=== PATIENT | female | born 1935 | race Caucasian/White ===

== ENCOUNTER → 2016-06-12 | Outpatient (CLI) | payer MEDICARE, BC ==
[~2016-06-12] MED LIST: ATOR20TA9 PO; BENZ100C4 PO; GLUC500T8 PO; GUAI5SYR PO; HYDR25TA6 PO; LEVO500T33 PO; MULT-6 PO; OMEP-110 PO; POTA10CA PO; VITA1CAP PO
== END | disposition home or self-care (01) ==
LOC: CFH 10:06
PROVIDERS: ATTEND Family Medicine
DX: M51.36 Other intervertebral disc degeneration, lumbar region (principal); M41.86 Other forms of scoliosis, lumbar region; M48.06 Spinal stenosis, lumbar region; M51.04 Intervertebral disc disorders with myelopathy, thoracic region; M43.8X4 Other specified deforming dorsopathies, thoracic region; M25.78 Osteophyte, vertebrae
CPT/HCPCS: 72148

== ENCOUNTER → 2016-07-10 | Outpatient (CLI) | payer MEDICARE, BC ==
[~2016-07-10] MED LIST changes: +CALC-55 PO; +ENAL10TA PO; +FLUOROURACIL 5%; +FLUT12AE3 NS; +LUTE1CAP5 PO; +VITA400T6 PO; +chondroitin PO
[2016-07-10 11:57] LABS: ASPARTATE AMINO TRANSFERASE 18 U/L (15-37); BLOOD UREA NITROGEN 11 mg/dL (7-18)
[2016-07-10 12:11] LABS: HIV 1&2 ANTIBODY SCREEN Nonreactive (Nonreactive); HIV-1 p24 ANTIGEN Nonreactive (Nonreactive)
[2016-07-10 12:59] LABS: HEPATITIS C VIRUS ANTIBODY Nonreactive (Nonreactive)
== END | disposition home or self-care (01) ==
LOC: STAR 10:14
PROVIDERS: ATTEND Orthopaedic Surgery Orthopaedic Surgery of the Spine
DX: Z01.818 Encounter for other preprocedural examination (principal); Z85.89 Personal history of malignant neoplasm of other organs and systems; S22.069A Unspecified fracture of T7-T8 vertebra, initial encounter for closed fracture; X58.XXXA Exposure to other specified factors, initial encounter; Y93.89 Activity, other specified; Y92.89 Other specified places as the place of occurrence of the external cause; Y99.8 Other external cause status
CPT/HCPCS: 36415; 71020; 80053; 80074; 81001; 85025; 85610; 85651; 85730; 86703; 87077; 87086; 87899; 93005; G0435

== ENCOUNTER 2016-07-17 07:54 | Day surgery (SDC) | payer MEDICARE, BC ==
[2016-07-10 10:56] VITALS: BP 181/86
[~2016-07-17] VITALS: Ht 170.2 cm; Wt 65.0 kg
[2016-07-17] MEDS ORDERED: LACTATED RINGERS 1,000 ML IV SCH (08:37)
[2016-07-17 08:41] VITALS: BP 181/86
[2016-07-17] MEDS ORDERED: SULF1TAB24 PO (08:41)
[2016-07-17] MEDS ORDERED: LIDOCAINE 1%, 2ML ONE (08:43)
[2016-07-17] MEDS ORDERED: MIDAZOLAM 1 MG/ML, 2ML ONE (09:42)
[2016-07-17] MEDS ORDERED: FENTANYL PF 250 MCG/5ML ONE (09:42)
[2016-07-17] MEDS ORDERED: LIDOCAINE/PF 1%, 30ML ONE (10:04)
[2016-07-17] MEDS ORDERED: BUPIVACAINE/PF-EPI 0.5% 1:200K ONE (10:04)
[2016-07-17] MEDS ORDERED: LIDOCAINE 0.5%-EPI 1:200K, 50ML ONE (10:26)
[2016-07-17] MEDS ORDERED: SUCCINYLCHOLINE 20 MG/ML, 10ML ONE (10:40)
[2016-07-17] MEDS ORDERED: ROCURONIUM 10 MG/ML ONE (10:40)
[2016-07-17] MEDS ORDERED: CEFAZOLIN 1,000 MG ONE (10:40)
[2016-07-17] MEDS ORDERED: DEXAMETHASONE 4 MG/ML, 1ML ONE (10:40)
[2016-07-17] MEDS ORDERED: ONDANSETRON 2MG/ML, 2ML ONE (10:40)
[2016-07-17] MEDS ORDERED: PROPOFOL 10 MG/ML, 20ML ONE (10:40)
[2016-07-17] MEDS ORDERED: OMNIPAQUE 180 MG/ML, 20ML VIAL ONE (12:19)
[2016-07-17] MEDS ORDERED: OXYcodone 5 MG/5 ML ORAL.SOL UDC ONE (12:28)
[2016-07-17] MEDS ORDERED: LABETALOL 5MG/ML, 20ML IV PRN (12:30)
[2016-07-17] MEDS ORDERED: ACETAMINOPHEN 325 MG TABLET PO PRN (12:30)
[2016-07-17] MEDS ORDERED: hydrALAzine 20 MG/ML, 1ML IV PRN (12:30)
[2016-07-17] MEDS ORDERED: HYDROmorphone 1 MG/ML, 1ML IV PRN (12:30)
[2016-07-17] MEDS ORDERED: FENTANYL PF 100 MCG/2ML IV PRN (12:30)
[2016-07-17] MEDS ORDERED: ONDANSETRON 2MG/ML, 2ML IVPush PRN (12:30)
[2016-07-17] MEDS ORDERED: OXYcodone 5 MG/5 ML ORAL.SOL UDC PO PRN (12:30)
[2016-07-17] MEDS ORDERED: METOCLOPRAMIDE 5 MG/ML, 2ML IV PRN (12:30)
== END 2016-07-17 14:25 | disposition home or self-care (01) ==
LOC: OUT 07:54
PROVIDERS: ATTEND Orthopaedic Surgery Orthopaedic Surgery of the Spine
DX: M80.88XA Other osteoporosis with current pathological fracture, vertebra(e), initial encounter for fracture (principal); M54.6 Pain in thoracic spine; C90.00 Multiple myeloma not having achieved remission; E11.9 Type 2 diabetes mellitus without complications; E78.5 Hyperlipidemia, unspecified; K21.9 Gastro-esophageal reflux disease without esophagitis; Z90.49 Acquired absence of other specified parts of digestive tract; Z96.653 Presence of artificial knee joint, bilateral; G47.30 Sleep apnea, unspecified; Z98.1 Arthrodesis status; Z79.899 Other long term (current) drug therapy; Z88.8 Allergy status to other drugs, medicaments and biological substances; Z90.710 Acquired absence of both cervix and uterus
CPT/HCPCS: 20982; 22513; 72072; 81001; 81003; 87086; 88307; 88311; C1713; C1886; J0330; J0690; J1100; J2250; J2405; J2704; J3010; J7120; Q9965; J3490

== ENCOUNTER 2016-09-12 23:32 | Inpatient (IN) | payer MEDICARE, BC ==
[~2016-09-12] VITALS: Ht 167.6 cm; Wt 71.1 kg
[~2016-09-12 23:32] MED LIST changes: +SULF1TAB24 PO
[2016-09-12] MEDS ORDERED: HYDROmorphone 1 MG/ML, 1ML IM STA (23:42)
[2016-09-13] MEDS ORDERED: HYDROmorphone 1 MG/ML, 1ML ONE (00:34)
[2016-09-13] MEDS ORDERED: SODIUM CHLORIDE 0.9% 1,000 ML IV ONE (02:09)
[2016-09-13] MEDS ORDERED: MORPHINE SULFATE 4 MG/ML, 1ML IVPush PRN (02:30)
[2016-09-13] MEDS ORDERED: ONDANSETRON 2MG/ML, 2ML IVPush PRN (02:30)
[2016-09-13 02:31] LABS: BLOOD UREA NITROGEN 12 mg/dL (7-18)
[2016-09-13 03:30] VITALS: BP 133/77
[2016-09-13] MEDS ORDERED: hydrALAzine 20 MG/ML, 1ML IVPush PRN (04:30)
[2016-09-13] MEDS ORDERED: BISACODYL 10 MG SUPP PR PRN (04:30)
[2016-09-13] MEDS ORDERED: FLUTICASONE NASAL SPRAY 16GM NAS PRN (04:30)
[2016-09-13] MEDS ORDERED: DOCUSATE 100 MG CAPSULE PO PRN (04:30)
[2016-09-13] MEDS ORDERED: ACETAMINOPHEN 325 MG TABLET PO PRN (04:30)
[2016-09-13] MEDS ORDERED: TRAZODONE 50MG TABLET PO PRN (04:30)
[2016-09-13] MEDS: morphine SULFATE 10 MG/ML, 1ML IVPush PRN ×2 (05:42→08:49)
[2016-09-13] MEDS: HEPARIN 5,000 UNITS/ML, 1ML SQ SCH ×3 (05:45→21:38)
[2016-09-13 06:28] VITALS: BP 133/77
[2016-09-13 06:45] VITALS: BP 166/74
[2016-09-13] MEDS: FOLIC ACID 1 MG TABLET PO SCH (08:15)
[2016-09-13] MEDS: THIAMINE 100MG TABLET PO SCH (08:16)
[2016-09-13] MEDS: CALCIUM/VITAMIN D3 250-125 TABLET PO SCH ×3 (08:16→21:37)
[2016-09-13] MEDS: OMEPRAZOLE 20 MG CAPSULE.DR PO SCH (08:16)
[2016-09-13] MEDS: MULTIVITAMIN 1 TABLET PO SCH (08:16)
[2016-09-13] MEDS ORDERED: LUTEIN PO SCH (09:00)
[2016-09-13] MEDS ORDERED: ZEAXANTHIN PO SCH (09:00)
[2016-09-13] MEDS ORDERED: MAGNESIUM SULFATE PMX 4GM/100M 100 ML IV ONE (10:00)
[2016-09-13] MEDS: NS + 20MEQ KCL 1,000 ML IV SCH ×2 (10:52→23:10)
[2016-09-13 12:40] VITALS: BP 178/78
[2016-09-13] MEDS: HYDROcodone/APAP 10/325 MG TABLET PO PRN ×3 (12:58→23:08)
[2016-09-13] MEDS ORDERED: AMLO5TAB4 PO (13:51)
[2016-09-13] MEDS ORDERED: HYDR25TA6 PO (13:51)
[2016-09-13] MEDS ORDERED: AMLODIPINE 5 MG TABLET PO ONE (14:00)
[2016-09-13] MEDS ORDERED: HYDROCHLOROTHIAZIDE 25 MG TABLET PO ONE (14:00)
[2016-09-13 18:59] VITALS: BP 152/76
[2016-09-13] MEDS: ATORVASTATIN 20 MG TABLET PO SCH (21:37)
[2016-09-14 01:17] VITALS: BP 170/72
[2016-09-14] MEDS: HYDROcodone/APAP 10/325 MG TABLET PO PRN ×5 (04:39→21:55)
[2016-09-14 05:24] LABS: BLOOD UREA NITROGEN 5 mg/dL (7-18)
[2016-09-14 05:27] LABS: ASPARTATE AMINO TRANSFERASE 17 U/L (15-37)
[2016-09-14] MEDS: HEPARIN 5,000 UNITS/ML, 1ML SQ SCH ×3 (05:52→21:57)
[2016-09-14 06:31] VITALS: BP 141/74
[2016-09-14] MEDS ORDERED: POTASSIUM CHLORIDE 20 MEQ TAB.ER.PRT PO ONE (07:30)
[2016-09-14] MEDS: OMEPRAZOLE 20 MG CAPSULE.DR PO SCH (08:35)
[2016-09-14] MEDS: ONDANSETRON 2MG/ML, 2ML IVPush PRN (08:43)
[2016-09-14] MEDS: HYDROCHLOROTHIAZIDE 25 MG TABLET PO SCH (09:00)
[2016-09-14] MEDS: FOLIC ACID 1 MG TABLET PO SCH (10:27)
[2016-09-14] MEDS: CALCIUM/VITAMIN D3 250-125 TABLET PO SCH ×3 (10:28→21:55)
[2016-09-14] MEDS: MULTIVITAMIN 1 TABLET PO SCH (10:28)
[2016-09-14] MEDS: THIAMINE 100MG TABLET PO SCH (10:28)
[2016-09-14] MEDS: AMLODIPINE 5 MG TABLET PO SCH (10:28)
[2016-09-14] MEDS ORDERED: HYDR-3307 PO (12:00)
[2016-09-14] MEDS ORDERED: ONDA4TAB10 PO (12:00)
[2016-09-14 12:52] VITALS: BP 137/79
[2016-09-14] MEDS: POTASSIUM CHLORIDE 20 MEQ TAB.ER.PRT PO SCH (16:40)
[2016-09-14 18:25] LABS: PATH.CAST-FLAG NOT PRESENT; SPERM-FLAG NOT PRESENT; SRC-FLAG NOT PRESENT; XTAL-FLAG NOT PRESENT; YLC-FLAG NOT PRESENT
[2016-09-14 19:13] VITALS: BP 158/67
[2016-09-14] MEDS: POLYETHYLENE GLYCOL 17 GM PACKET PO PRN (21:55)
[2016-09-14] MEDS: ATORVASTATIN 20 MG TABLET PO SCH (21:55)
[2016-09-15 00:21] VITALS: BP 176/77
[2016-09-15 02:58] VITALS: BP 155/83
[2016-09-15] MEDS: HYDROcodone/APAP 10/325 MG TABLET PO PRN ×3 (04:13→16:44)
[2016-09-15 05:03] LABS: BLOOD UREA NITROGEN 5 mg/dL (7-18)
[2016-09-15] MEDS: HEPARIN 5,000 UNITS/ML, 1ML SQ SCH ×3 (05:25→22:15)
[2016-09-15 06:53] VITALS: BP 172/83
[2016-09-15] MEDS: THIAMINE 100MG TABLET PO SCH (08:10)
[2016-09-15] MEDS: POTASSIUM CHLORIDE 20 MEQ TAB.ER.PRT PO SCH (08:10)
[2016-09-15] MEDS: FOLIC ACID 1 MG TABLET PO SCH (08:10)
[2016-09-15] MEDS: MULTIVITAMIN 1 TABLET PO SCH (08:10)
[2016-09-15] MEDS: AMLODIPINE 5 MG TABLET PO SCH (08:10)
[2016-09-15] MEDS: OMEPRAZOLE 20 MG CAPSULE.DR PO SCH (08:11)
[2016-09-15] MEDS: HYDROCHLOROTHIAZIDE 25 MG TABLET PO SCH (08:11)
[2016-09-15] MEDS: CALCIUM/VITAMIN D3 250-125 TABLET PO SCH ×3 (08:11→22:15)
[2016-09-15] MEDS: ONDANSETRON 2MG/ML, 2ML IVPush PRN (08:19)
[2016-09-15] MEDS: AMPICILLIN 1 GM in SODIUM CHLORIDE 0.9% 50 ML IV SCH ×3 (12:43→23:20)
[2016-09-15 13:10] VITALS: BP 162/75
[2016-09-15 18:17] VITALS: BP 160/84
[2016-09-15] MEDS: ATORVASTATIN 20 MG TABLET PO SCH (22:15)
[2016-09-16 01:30] VITALS: BP 161/72
[2016-09-16] MEDS: HYDROcodone/APAP 10/325 MG TABLET PO PRN (01:57)
[2016-09-16] MEDS: HEPARIN 5,000 UNITS/ML, 1ML SQ SCH ×3 (05:34→22:59)
[2016-09-16] MEDS: AMPICILLIN 1 GM in SODIUM CHLORIDE 0.9% 50 ML IV SCH ×4 (05:34→22:59)
[2016-09-16 06:33] VITALS: BP 149/78
[2016-09-16] MEDS: THIAMINE 100MG TABLET PO SCH (08:04)
[2016-09-16] MEDS: FOLIC ACID 1 MG TABLET PO SCH (08:04)
[2016-09-16] MEDS: CALCIUM/VITAMIN D3 250-125 TABLET PO SCH ×3 (08:04→20:42)
[2016-09-16] MEDS: MULTIVITAMIN 1 TABLET PO SCH (08:04)
[2016-09-16] MEDS: ONDANSETRON 2MG/ML, 2ML IVPush PRN (08:08)
[2016-09-16] MEDS: POLYETHYLENE GLYCOL 17 GM PACKET PO PRN (08:09)
[2016-09-16] MEDS: AMLODIPINE 5 MG TABLET PO SCH (08:11)
[2016-09-16] MEDS: OMEPRAZOLE 20 MG CAPSULE.DR PO SCH (08:11)
[2016-09-16] MEDS: HYDROCHLOROTHIAZIDE 25 MG TABLET PO SCH (08:11)
[2016-09-16] MEDS ORDERED: BISACODYL 10 MG SUPP PR PRN (10:00)
[2016-09-16 10:35] LABS: BLOOD UREA NITROGEN 6 mg/dL (7-18)
[2016-09-16 10:40] LABS: ASPARTATE AMINO TRANSFERASE 20 U/L (15-37)
[2016-09-16] MEDS ORDERED: NS + 40MEQ KCL 1,000 ML IV SCH ×2 (11:00→21:30)
[2016-09-16 12:51] VITALS: BP 146/80
[2016-09-16] MEDS ORDERED: AMPI500C2 PO (16:09)
[2016-09-16] MEDS: POTASSIUM CHLORIDE 20 MEQ TAB.ER.PRT PO SCH (16:37)
[2016-09-16] MEDS: HYDROcodone/APAP 5/325 TABLET PO PRN ×2 (16:40→20:42)
[2016-09-16 19:02] VITALS: BP 161/69
[2016-09-16] MEDS: ATORVASTATIN 20 MG TABLET PO SCH (20:42)
[2016-09-16] MEDS ORDERED: hydrALAzine 20 MG/ML, 1ML IVPush PRN (21:00)
[2016-09-16] MEDS ORDERED: FLUTICASONE NASAL SPRAY 16GM NAS PRN (21:00)
[2016-09-16] MEDS ORDERED: TRAZODONE 50MG TABLET PO PRN (21:00)
[2016-09-16] MEDS ORDERED: ACETAMINOPHEN 325 MG TABLET PO PRN (21:00)
[2016-09-17 01:59] VITALS: BP 157/75
[2016-09-17] MEDS: AMPICILLIN 1 GM in SODIUM CHLORIDE 0.9% 50 ML IV SCH (05:15)
[2016-09-17 05:36] LABS: BLOOD UREA NITROGEN 6 mg/dL (7-18)
[2016-09-17 05:41] LABS: ASPARTATE AMINO TRANSFERASE 19 U/L (15-37)
[2016-09-17] MEDS: HEPARIN 5,000 UNITS/ML, 1ML SQ SCH ×3 (07:07→23:06)
[2016-09-17 07:46] VITALS: BP 164/94
[2016-09-17] MEDS ORDERED: MAGNESIUM CITRATE 300ML ORAL SOL PO PRN (09:00)
[2016-09-17] MEDS ORDERED: POTASSIUM CHLORIDE 20 MEQ TAB.ER.PRT PO ONE (09:00)
[2016-09-17] MEDS: FOLIC ACID 1 MG TABLET PO SCH (10:22)
[2016-09-17] MEDS: MULTIVITAMIN 1 TABLET PO SCH (10:22)
[2016-09-17] MEDS: HYDROCHLOROTHIAZIDE 25 MG TABLET PO SCH (10:22)
[2016-09-17] MEDS: AMLODIPINE 5 MG TABLET PO SCH (10:22)
[2016-09-17] MEDS: OMEPRAZOLE 20 MG CAPSULE.DR PO SCH (10:22)
[2016-09-17] MEDS: THIAMINE 100MG TABLET PO SCH (10:22)
[2016-09-17] MEDS: AMOXICILLIN 500 MG CAPSULE PO SCH ×3 (10:22→20:00)
[2016-09-17] MEDS: CALCIUM/VITAMIN D3 250-125 TABLET PO SCH ×3 (10:22→19:59)
[2016-09-17] MEDS: POTASSIUM CHLORIDE 20 MEQ TAB.ER.PRT PO SCH ×2 (10:22→16:29)
[2016-09-17 12:53] VITALS: BP 144/77
[2016-09-17 18:44] VITALS: BP 153/83
[2016-09-17] MEDS: ATORVASTATIN 20 MG TABLET PO SCH (19:59)
[2016-09-17] MEDS: HYDROcodone/APAP 5/325 TABLET PO PRN (19:59)
[2016-09-18 02:38] VITALS: BP 147/89
[2016-09-18] MEDS: HEPARIN 5,000 UNITS/ML, 1ML SQ SCH (06:40)
[2016-09-18 06:44] LABS: BLOOD UREA NITROGEN 8 mg/dL (7-18)
[2016-09-18 07:08] VITALS: BP 161/93
[2016-09-18] MEDS: HYDROCHLOROTHIAZIDE 25 MG TABLET PO SCH (09:10)
[2016-09-18] MEDS: FOLIC ACID 1 MG TABLET PO SCH (09:10)
[2016-09-18] MEDS: AMLODIPINE 5 MG TABLET PO SCH (09:10)
[2016-09-18] MEDS: AMOXICILLIN 500 MG CAPSULE PO SCH (09:10)
[2016-09-18] MEDS: THIAMINE 100MG TABLET PO SCH (09:10)
[2016-09-18] MEDS: OMEPRAZOLE 20 MG CAPSULE.DR PO SCH (09:11)
[2016-09-18] MEDS: CALCIUM/VITAMIN D3 250-125 TABLET PO SCH (09:11)
[2016-09-18] MEDS: MULTIVITAMIN 1 TABLET PO SCH (09:11)
[2016-09-18] MEDS ORDERED: AMOX-291 PO (09:52)
[2016-09-18 11:47] VITALS: BP 127/80
== END 2016-09-18 12:24 | DRG 543 ==
LOC: ED 23:59 → EDIP 09-13 02:09 → 4NOR 09-13 02:50
PROVIDERS: ADMIT Internal Medicine
DX: M84.521A Pathological fracture in neoplastic disease, right humerus, initial encounter for fracture (principal); S42.251A Displaced fracture of greater tuberosity of right humerus, initial encounter for closed fracture; C90.00 Multiple myeloma not having achieved remission; N39.0 Urinary tract infection, site not specified; E87.1 Hypo-osmolality and hyponatremia; S22.070A Wedge compression fracture of T9-T10 vertebra, initial encounter for closed fracture; B95.2 Enterococcus as the cause of diseases classified elsewhere; E87.6 Hypokalemia; I10 Essential (primary) hypertension; K21.9 Gastro-esophageal reflux disease without esophagitis; K59.00 Constipation, unspecified; W01.0XXA Fall on same level from slipping, tripping and stumbling without subsequent striking against object, initial encounter; L98.9 Disorder of the skin and subcutaneous tissue, unspecified; M41.9 Scoliosis, unspecified; M81.0 Age-related osteoporosis without current pathological fracture; D64.9 Anemia, unspecified; Z96.621 Presence of right artificial elbow joint; Z96.653 Presence of artificial knee joint, bilateral; Y92.009 Unspecified place in unspecified non-institutional (private) residence as the place of occurrence of the external cause; Z87.891 Personal history of nicotine dependence; Y93.89 Activity, other specified; Y99.8 Other external cause status; Z98.49 Cataract extraction status, unspecified eye; Z79.899 Other long term (current) drug therapy; Z91.041 Radiographic dye allergy status; Z88.8 Allergy status to other drugs, medicaments and biological substances; Z82.5 Family history of asthma and other chronic lower respiratory diseases; Z82.49 Family history of ischemic heart disease and other diseases of the circulatory system
CPT/HCPCS: 36415; 72072; 74000; 80048; 80053; 81001; 82040; 82306; 82607; 82746; 83735; 84443; 85025; 85610; 87077; 87086; 87186; 93005; J0290; J1170; J1644; J2405; J3480; J2270; J3475; J7030

== ENCOUNTER → 2016-11-26 | Outpatient (CLI) | payer MEDICARE, BC ==
[~2016-11-26] MED LIST changes: +AMLO5TAB4 PO; +AMOX-291 PO; +AMPI500C2 PO; +BENZ100C17 PO; -BENZ100C4 PO; +GLUC500T11 PO; -GLUC500T8 PO; +HYDR-3307 PO; -LEVO500T33 PO; +LEVO500T47 PO; +ONDA4TAB10 PO
== END | disposition home or self-care (01) ==
LOC: PETCFH 09:30
PROVIDERS: ATTEND Internal Medicine Hematology & Oncology
DX: Z02.9 Encounter for administrative examinations, unspecified (principal)

== ENCOUNTER → 2016-12-14 | Outpatient (CLI) | payer MEDICARE, BC | END | disposition home or self-care (01) | LOC: PETCFH 11:07 | PROVIDERS: ATTEND Internal Medicine Hematology & Oncology | DX: D47.2 Monoclonal gammopathy (principal) | CPT/HCPCS: 78815; A9552 ==

== ENCOUNTER 2017-02-08 12:11 | Inpatient (IN) | payer MEDICARE, BC ==
[~2017-02-08] VITALS: Ht 167.6 cm; Wt 70.3 kg
[~2017-02-08 12:11] MED LIST changes: +BENZ-17 PO; -BENZ100C17 PO
[2017-02-08 13:28] LABS: HEMATOCRIT 45.1 % (34.6-47.8); HEMOGLOBIN 15.5 g/dL (11.7-16.4); WHITE BLOOD COUNT 14.8 x10^3/uL (3.4-10)
[2017-02-08 13:40] LABS: ASPARTATE AMINO TRANSFERASE 29 U/L (15-37); BLOOD UREA NITROGEN 34 mg/dL (7-18)
[2017-02-08] MEDS ORDERED: SODIUM CHLORIDE 0.9% 1,000 ML IV ONE (16:02)
[2017-02-08] MEDS ORDERED: SODIUM CHLORIDE FLUSH 10ML SYR IVF ONE (16:30)
[2017-02-08] MEDS ORDERED: SODIUM CHLORIDE 0.9% 1,000ML IVBOLUS ONE (16:30)
[2017-02-08] MEDS ORDERED: ONDANSETRON ODT 4 MG PO PRN (17:30)
[2017-02-08] MEDS ORDERED: ONDANSETRON 2MG/ML, 2ML IVPush PRN (18:00)
[2017-02-08] MEDS ORDERED: POTASSIUM CHLORIDE 20 MEQ TAB.ER.PRT PO ONE (18:00)
[2017-02-08] MEDS ORDERED: ACETAMINOPHEN 325 MG TABLET PO PRN (18:00)
[2017-02-08] MEDS ORDERED: PROMETHAZINE 25 MG/ML, 1ML IM PRN (18:00)
[2017-02-08] MEDS ORDERED: POTASSIUM CHLORIDE 20 MEQ TAB.ER.PRT ONE (18:22)
[2017-02-08] MEDS ORDERED: ENOXAPARIN 40 MG/0.4 ML ONE (18:34)
[2017-02-08] MEDS: SODIUM CHLORIDE 0.9% 1,000 ML IV SCH (18:37)
[2017-02-08] MEDS: LACTOBACILLUS CHEW TABLET PO SCH ×2 (18:37→21:09)
[2017-02-08] MEDS: ENOXAPARIN 40 MG/0.4 ML SQ SCH (18:37)
[2017-02-08 20:00] VITALS: BP 150/78
[2017-02-08] MEDS: ATORVASTATIN 20 MG TABLET PO SCH (21:09)
[2017-02-08] MEDS: HYDROcodone/APAP 5/325 TABLET PO PRN (21:10)
[2017-02-09 01:03] VITALS: BP 134/71
[2017-02-09] MEDS: SODIUM CHLORIDE 0.9% 1,000 ML IV SCH ×2 (03:15→15:49)
[2017-02-09 05:15] LABS: HEMATOCRIT 34.3 % (34.6-47.8); HEMOGLOBIN 11.6 g/dL (11.7-16.4); WHITE BLOOD COUNT 8.2 x10^3/uL (3.4-10)
[2017-02-09] MEDS: LACTOBACILLUS CHEW TABLET PO SCH ×4 (05:24→21:40)
[2017-02-09 05:30] LABS: ASPARTATE AMINO TRANSFERASE 14 U/L (15-37); BLOOD UREA NITROGEN 25 mg/dL (7-18)
[2017-02-09 08:30] VITALS: BP 136/65
[2017-02-09] MEDS ORDERED: POTASSIUM CHLORIDE 20 MEQ TAB.ER.PRT PO ONE (09:30)
[2017-02-09] MEDS: OMEPRAZOLE 20 MG CAPSULE.DR PO SCH (09:40)
[2017-02-09] MEDS: AMLODIPINE 5 MG TABLET PO SCH (09:40)
[2017-02-09] MEDS: MULTIVITAMIN 1 TABLET PO SCH (09:40)
[2017-02-09 14:30] VITALS: BP 143/67
[2017-02-09 14:30] LABS: HEMATOCRIT 34.3 % (34.6-47.8); HEMOGLOBIN 11.7 g/dL (11.7-16.4)
[2017-02-09 20:00] VITALS: BP 153/72
[2017-02-09] MEDS: ENOXAPARIN 40 MG/0.4 ML SQ SCH (21:40)
[2017-02-09] MEDS: HYDROcodone/APAP 5/325 TABLET PO PRN (21:40)
[2017-02-09] MEDS: ATORVASTATIN 20 MG TABLET PO SCH (21:40)
[2017-02-10 00:24] VITALS: BP 152/55
[2017-02-10] MEDS: SODIUM CHLORIDE 0.9% 1,000 ML IV SCH ×2 (00:32→08:55)
[2017-02-10] MEDS: LACTOBACILLUS CHEW TABLET PO SCH ×4 (05:02→21:11)
[2017-02-10 06:17] LABS: HEMATOCRIT 32.9 % (34.6-47.8); HEMOGLOBIN 11.3 g/dL (11.7-16.4); WHITE BLOOD COUNT 6.4 x10^3/uL (3.4-10)
[2017-02-10 06:32] LABS: BLOOD UREA NITROGEN 10 mg/dL (7-18)
[2017-02-10 08:33] VITALS: BP 154/62
[2017-02-10] MEDS: AMLODIPINE 5 MG TABLET PO SCH (08:55)
[2017-02-10] MEDS: OMEPRAZOLE 20 MG CAPSULE.DR PO SCH (08:55)
[2017-02-10] MEDS: MULTIVITAMIN 1 TABLET PO SCH (08:55)
[2017-02-10] MEDS ORDERED: NS + 40MEQ KCL 1,000 ML IV SCH (10:30)
[2017-02-10] MEDS ORDERED: POTASSIUM CHLORIDE 20 MEQ TAB.ER.PRT PO ONE (10:30)
[2017-02-10 15:45] VITALS: BP 167/72
[2017-02-10 21:00] VITALS: BP 156/80
[2017-02-10] MEDS: ATORVASTATIN 20 MG TABLET PO SCH (21:11)
[2017-02-10] MEDS: ENOXAPARIN 40 MG/0.4 ML SQ SCH (21:12)
[2017-02-11 03:20] VITALS: BP 143/66
[2017-02-11 05:37] LABS: BLOOD UREA NITROGEN 6 mg/dL (7-18)
[2017-02-11] MEDS: LACTOBACILLUS CHEW TABLET PO SCH ×4 (05:41→21:43)
[2017-02-11 06:37] VITALS: BP 168/70
[2017-02-11] MEDS: AMLODIPINE 5 MG TABLET PO SCH (09:04)
[2017-02-11] MEDS: MULTIVITAMIN 1 TABLET PO SCH (09:04)
[2017-02-11] MEDS: OMEPRAZOLE 20 MG CAPSULE.DR PO SCH (09:04)
[2017-02-11] MEDS ORDERED: POTASSIUM CHLORIDE 20 MEQ TAB.ER.PRT PO ONE ×2 (10:00→19:30)
[2017-02-11 12:25] VITALS: BP 162/76
[2017-02-11] MEDS ORDERED: NS + 40MEQ KCL 1,000 ML IV SCH (17:30)
[2017-02-11] MEDS ORDERED: POTASSIUM PHOSPHATE 44 MEQ in SODIUM CHLORIDE 0.9% 500 ML IV ONE ×2 (17:30→18:00)
[2017-02-11] MEDS ORDERED: MAGNESIUM SULFATE PMX 4GM/100M 100 ML IV ONE ×2 (17:30→18:00)
[2017-02-11 18:39] LABS: BLOOD UREA NITROGEN 8 mg/dL (7-18)
[2017-02-11 19:17] VITALS: BP 154/71
[2017-02-11] MEDS ORDERED: POTASSIUM PHOS 4.4 MEQ/ML IV ONE (20:00)
[2017-02-11] MEDS: ATORVASTATIN 20 MG TABLET PO SCH (21:43)
[2017-02-11] MEDS: ENOXAPARIN 40 MG/0.4 ML SQ SCH (21:43)
[2017-02-12 02:05] VITALS: BP 143/80
[2017-02-12] MEDS: HYDROcodone/APAP 5/325 TABLET PO PRN (04:00)
[2017-02-12 05:31] LABS: BLOOD UREA NITROGEN 6 mg/dL (7-18)
[2017-02-12] MEDS: LACTOBACILLUS CHEW TABLET PO SCH ×2 (06:18→10:44)
[2017-02-12 07:06] VITALS: BP 160/66
[2017-02-12] MEDS: MULTIVITAMIN 1 TABLET PO SCH (07:33)
[2017-02-12] MEDS: AMLODIPINE 5 MG TABLET PO SCH (07:33)
[2017-02-12] MEDS: OMEPRAZOLE 20 MG CAPSULE.DR PO SCH (07:33)
[2017-02-12 14:26] VITALS: BP 153/84
== END 2017-02-12 16:35 | disposition home health service (06) | DRG 393 ==
LOC: ED 16:54 → EDIP 17:42 → 4EST 19:39
PROVIDERS: ADMIT Internal Medicine; ATTEND Internal Medicine
DX: K55.9 Vascular disorder of intestine, unspecified (principal); N17.0 Acute kidney failure with tubular necrosis; E87.1 Hypo-osmolality and hyponatremia; C90.00 Multiple myeloma not having achieved remission; D75.89 Other specified diseases of blood and blood-forming organs; E78.5 Hyperlipidemia, unspecified; I10 Essential (primary) hypertension; E86.0 Dehydration; R73.9 Hyperglycemia, unspecified; E87.6 Hypokalemia; Z96.653 Presence of artificial knee joint, bilateral; K21.9 Gastro-esophageal reflux disease without esophagitis; K59.00 Constipation, unspecified; L98.9 Disorder of the skin and subcutaneous tissue, unspecified; Z87.891 Personal history of nicotine dependence; Z90.49 Acquired absence of other specified parts of digestive tract
CPT/HCPCS: 36415; 74020; 74176; 80048; 80053; 80061; 81001; 82607; 82746; 83036; 83690; 83735; 84100; 85014; 85018; 85025; 87086; 87324; 87328; 87329; 89055; 93005; 96360; J1650; J3475; J3480; J7030; J7040

== ENCOUNTER → 2017-08-29 | Outpatient (CLI) | payer MEDICARE, BC | END | disposition home or self-care (01) | LOC: CFH 14:46 | PROVIDERS: ATTEND Physician Assistant | DX: C90.01 Multiple myeloma in remission (principal); C44.91 Basal cell carcinoma of skin, unspecified; I10 Essential (primary) hypertension; E04.1 Nontoxic single thyroid nodule; K21.9 Gastro-esophageal reflux disease without esophagitis; E87.1 Hypo-osmolality and hyponatremia; E03.9 Hypothyroidism, unspecified; E87.6 Hypokalemia | CPT/HCPCS: 76536 ==

== ENCOUNTER → 2017-11-13 | Outpatient (CLI) | payer MEDICARE, BC | END | disposition home or self-care (01) | LOC: CFH 11:49 | PROVIDERS: ATTEND Internal Medicine Hematology & Oncology | DX: M47.896 Other spondylosis, lumbar region (principal); M41.86 Other forms of scoliosis, lumbar region; D47.2 Monoclonal gammopathy; C90.01 Multiple myeloma in remission | CPT/HCPCS: 77074 ==

== ENCOUNTER → 2017-11-27 | Outpatient (CLI) | payer MEDICARE, BC | END | disposition home or self-care (01) | LOC: CFH 09:50 | PROVIDERS: ATTEND Physician Assistant | DX: R16.1 Splenomegaly, not elsewhere classified (principal); J44.9 Chronic obstructive pulmonary disease, unspecified; E78.5 Hyperlipidemia, unspecified; I10 Essential (primary) hypertension; K21.9 Gastro-esophageal reflux disease without esophagitis; E87.1 Hypo-osmolality and hyponatremia; C90.01 Multiple myeloma in remission; C44.91 Basal cell carcinoma of skin, unspecified; Z90.49 Acquired absence of other specified parts of digestive tract | CPT/HCPCS: 76700 ==

== ENCOUNTER → 2018-01-21 | Outpatient (CLI) | payer MEDICARE, BC ==
[~2018-01-21] MED LIST changes: +OMNIPAQUE 350 MG/ML, 100ML BOTTLE ONE
== END | disposition home or self-care (01) ==
LOC: CFH 07:46
PROVIDERS: ATTEND Physician Assistant
DX: I70.0 Atherosclerosis of aorta (principal); R16.1 Splenomegaly, not elsewhere classified; R14.0 Abdominal distension (gaseous); I10 Essential (primary) hypertension; J44.9 Chronic obstructive pulmonary disease, unspecified; E78.5 Hyperlipidemia, unspecified; C90.01 Multiple myeloma in remission; K21.9 Gastro-esophageal reflux disease without esophagitis; E78.1 Pure hyperglyceridemia; E03.9 Hypothyroidism, unspecified; Z90.49 Acquired absence of other specified parts of digestive tract
CPT/HCPCS: 74177; Q9967

== ENCOUNTER → 2018-03-10 | Outpatient (CLI) | payer MEDICARE, BC ==
[~2018-03-10] MED LIST changes: +ATOR20TA37 PO; -ATOR20TA9 PO; -OMNIPAQUE 350 MG/ML, 100ML BOTTLE ONE; +REGADENOSON 0.4 MG/5 ML SYRINGE ONE
== END | disposition home or self-care (01) ==
LOC: CFH 12:23
PROVIDERS: ATTEND Internal Medicine Cardiovascular Disease
DX: I25.10 Atherosclerotic heart disease of native coronary artery without angina pectoris (principal); I10 Essential (primary) hypertension
CPT/HCPCS: 78452; 93017; A9502; J2785

== ENCOUNTER → 2018-05-29 | Outpatient (CLI) | payer MEDICARE, BC ==
[~2018-05-29] MED LIST changes: -REGADENOSON 0.4 MG/5 ML SYRINGE ONE
== END | disposition home or self-care (01) ==
LOC: CFH 12:12
PROVIDERS: ATTEND Physician Assistant
DX: M19.012 Primary osteoarthritis, left shoulder (principal); M25.512 Pain in left shoulder

== ENCOUNTER → 2019-09-07 | Outpatient (CLI) | payer MEDICARE, BC ==
[~2019-09-07] MED LIST changes: +AMLO10TA8 PO; +DOCU100C33 PO; +HYDR-3246 PO; -HYDR-3307 PO; +LEVO25TA4 PO; +LOSA1TAB22 PO; +METO25TA35 PO; +POTA20TA14 PO; +SPIR25TA5 PO
== END | disposition home or self-care (01) ==
LOC: CFH 13:38
PROVIDERS: ATTEND Nurse Practitioner Primary Care
DX: I65.23 Occlusion and stenosis of bilateral carotid arteries (principal); R55 Syncope and collapse
CPT/HCPCS: 93880

== ENCOUNTER → 2020-01-07 | Outpatient (CLI) | payer MEDICARE, BC ==
[~2020-01-07] MED LIST changes: +AMLO-211 PO; -AMLO10TA8 PO; -ENAL10TA PO; +ENAL10TA9 PO
== END | disposition home or self-care (01) ==
LOC: WOUND 14:09
PROVIDERS: ATTEND Podiatrist Foot & Ankle Surgery
DX: S81.802A Unspecified open wound, left lower leg, initial encounter (principal); J44.9 Chronic obstructive pulmonary disease, unspecified; I10 Essential (primary) hypertension; E03.9 Hypothyroidism, unspecified; E78.2 Mixed hyperlipidemia; C90.01 Multiple myeloma in remission; Z79.899 Other long term (current) drug therapy; X58.XXXA Exposure to other specified factors, initial encounter; Y93.89 Activity, other specified; Y99.8 Other external cause status; Z87.891 Personal history of nicotine dependence; Y92.89 Other specified places as the place of occurrence of the external cause
CPT/HCPCS: 11042; G0463

== ENCOUNTER 2020-01-14 13:11 | Outpatient (CLI) | payer MEDICARE, BC | END 2020-01-14 23:59 | disposition home or self-care (01) | LOC: WOUND 13:11 | PROVIDERS: ATTEND Podiatrist Foot & Ankle Surgery | DX: S81.802D Unspecified open wound, left lower leg, subsequent encounter (principal); C90.01 Multiple myeloma in remission; E03.9 Hypothyroidism, unspecified; J44.9 Chronic obstructive pulmonary disease, unspecified; I10 Essential (primary) hypertension; E78.2 Mixed hyperlipidemia; Z87.891 Personal history of nicotine dependence; Z79.899 Other long term (current) drug therapy; X58.XXXD Exposure to other specified factors, subsequent encounter | CPT/HCPCS: 97597 ==

== ENCOUNTER 2020-01-19 19:49 | Emergency (ER) | payer MEDICARE, BC ==
[~2020-01-19] VITALS: Ht 167.6 cm; Wt 55.0 kg
--- NOTE | 2020-01-19 20:03 | NUR ---
DAUGHTER MICHELLE VENEGAS [phone]
--- NOTE | 2020-01-19 20:17 | NUR ---
PT BIB [facility] AFTER HAVING GLF AT HOME, TRIPPING OVER FEET IN BATHROOM. PT STATES SHE HIT HER HEAD BUT DID NOT LOSE CONCIOUSNESS. DENIES TAKING BLOOD THINNERS, DENIES OTHER INJURIES. PTS SKIN ON HEAD IS INTACT, GOLFBALL SIZE GOOSE EGG FELT ON RIGHT BACK HEAD.
--- NOTE | 2020-01-19 20:21 | NUR ---
PT TO CT
[2020-01-19 21:14] VITALS: BP 133/50
[2020-01-19] MEDS ORDERED: DOCU100C33 PO (21:16)
--- NOTE | 2020-01-19 21:17 | NUR ---
PT REQUESTING BLANKET. DENIES NEEDS. CALL [facility]
== END 2020-01-19 22:34 ==
LOC: ED 22:28
DX: S00.03XA Contusion of scalp, initial encounter (principal); E03.9 Hypothyroidism, unspecified; E78.5 Hyperlipidemia, unspecified; W18.30XA Fall on same level, unspecified, initial encounter; Y93.89 Activity, other specified; Y92.009 Unspecified place in unspecified non-institutional (private) residence as the place of occurrence of the external cause; Y99.8 Other external cause status
CPT/HCPCS: 70450; 99284

== ENCOUNTER → 2020-01-21 | Outpatient (CLI) | payer MEDICARE, BC | END | disposition home or self-care (01) | LOC: WOUND 14:10 | PROVIDERS: ATTEND Podiatrist Foot & Ankle Surgery | DX: S81.802D Unspecified open wound, left lower leg, subsequent encounter (principal); C90.01 Multiple myeloma in remission; E03.9 Hypothyroidism, unspecified; J44.9 Chronic obstructive pulmonary disease, unspecified; I10 Essential (primary) hypertension; E78.2 Mixed hyperlipidemia; Z87.891 Personal history of nicotine dependence; X58.XXXD Exposure to other specified factors, subsequent encounter | CPT/HCPCS: G0463 ==